=== PATIENT | male | born 1965 | race African-American/Black ===

== ENCOUNTER 2020-08-08 13:52 | Inpatient (IN) | payer OTHER ==
[2020-08-08 15:18] VITALS: BMI 47.2
[2020-08-08] MEDS ORDERED: MAGNESIUM HYDROX 2400MG/30ML ORAL SUSPENSION 30 ML CUP PO PRN (15:23)
[2020-08-08] MEDS ORDERED: MAG HYDROX/AL HYDROX/SIMETH 30 ML UNIT-DOSE CUP PO PRN (15:23)
[2020-08-08] MEDS ORDERED: IBUPROFEN 400 MG TABLET (FP) PO PRN (15:23)
[2020-08-08] MEDS ORDERED: ONDANSETRON *ODT* 4 MG TABLET SL PRN (15:23)
[2020-08-08] MEDS ORDERED: MAGNESIUM CITRATE 300 ML BOTTLE PO PRN (15:23)
[2020-08-08] MEDS ORDERED: MENTHOL/PHENOL 1 EACH UD MM PRN (15:23)
[2020-08-08] MEDS ORDERED: NICOTINE POLACRILEX 2 MG GUM BUC PRN (15:23)
[2020-08-08] MEDS ORDERED: ACETAMINOPHEN 325 MG TABLET (FP) PO PRN ×2 (15:23)
[2020-08-08] MEDS ORDERED: LORazepam 1 MG TABLET PO PRN (15:23)
[2020-08-08] MEDS ORDERED: BISMUTH SUBSALICYLATE 524 MG/30 ML UD PO PRN (15:23)
[2020-08-08] MEDS: LORazepam 2 MG TABLET PO SCH ×2 (17:07→22:09)
[2020-08-08] MEDS: hydrOXYzine PAMOATE 25 MG CAPSULE (FP) PO SCH ×2 (17:07→22:08)
[2020-08-08] MEDS: INSULIN SLIDING SCALE (NOVOLOG) 1 VIAL SQ SCH ×2 (17:43→21:37)
[2020-08-08] MEDS: THIAMINE HCL 100 MG TABLET (FP) PO SCH (22:08)
[2020-08-08] MEDS: GABAPENTIN 400 MG CAPSULE PO SCH (22:08)
[2020-08-08] MEDS: MELATONIN 5 MG TABLETS PO SCH (22:09)
[2020-08-09] MEDS: LORazepam 2 MG TABLET PO SCH ×4 (06:03→22:06)
[2020-08-09] MEDS: hydrOXYzine PAMOATE 25 MG CAPSULE (FP) PO SCH ×2 (06:04→10:20)
[2020-08-09] MEDS: INSULIN SLIDING SCALE (NOVOLOG) 1 VIAL SQ SCH ×4 (07:48→23:01)
[2020-08-09] MEDS: ASPIRIN 81 MG CHEWABLE TABLETS PO SCH (10:19)
[2020-08-09] MEDS: FUROSEMIDE 40 MG TABLET (FP) PO SCH (10:19)
[2020-08-09] MEDS: metoPROLOL SUCCINATE 25 MG TAB.SR.24H (FP) PO SCH (10:19)
[2020-08-09] MEDS: SPIRONOLACTONE 25 MG TABLET PO SCH (10:20)
[2020-08-09] MEDS: LOSARTAN POTASSIUM 25 MG TABLET PO SCH (10:20)
[2020-08-09] MEDS: PRENATAL VITAMINS W/ FOLIC ACID TABLET (FP) PO SCH (10:20)
[2020-08-09 13:21] LABS: POTASSIUM 3.8 mmol/L (3.5-5.1)
[2020-08-09 13:25] LABS: HEMATOCRIT 40.7 % (35.4-49); HEMOGLOBIN 13.7 GM/dL (11.7-16.9); MCH 30.5 pg (25.7-33.7); MCHC 33.8 g/dl (32.0-35.9); MEAN CELL VOLUME 90.4 fl (80-96); MEAN PLT VOLUME 10.9 fl (7.5-11.1); PLATELET COUNT 107 K/MM3 (134-434); RDW 16.4 % (11.9-15.9); WHITE BLOOD COUNT 5.3 K/mm3 (4.0-10.0)
[2020-08-09 13:27] LABS: ALBUMIN 3.7 g/dl (3.4-5.0); CALCIUM 9.6 mg/dL (8.5-10.1)
[2020-08-09 13:28] LABS: BLOOD UREA NITROGEN 9.9 mg/dL (7-18)
[2020-08-09 13:31] LABS: CREATININE 0.9 mg/dL (0.55-1.3)
[2020-08-09 13:34] LABS: TOT PROT 7.4 g/dl (6.4-8.2)
[2020-08-09] MEDS: GABAPENTIN 400 MG CAPSULE PO SCH (22:06)
[2020-08-09] MEDS: THIAMINE HCL 100 MG TABLET (FP) PO SCH (22:07)
[2020-08-09] MEDS: MELATONIN 5 MG TABLETS PO SCH (22:07)
[2020-08-09] MEDS: METHOCARBAMOL 500 MG TABLET PO PRN (22:07)
[2020-08-09] MEDS ORDERED: INSULIN (NOVOLOG) ASPART 100 UNITS/ML 10ML VIAL SQ ONE (22:48)
[2020-08-09] MEDS ORDERED: INSULIN (LEVEMIR) 100 UNITS/ML UNITS SQ ONE (22:53)
[2020-08-09] MEDS ORDERED: INSULIN SLIDING SCALE (NOVOLOG) 1 VIAL SQ ONE (22:53)
[2020-08-10] MEDS: hydrOXYzine PAMOATE 25 MG CAPSULE (FP) PO PRN (00:40)
[2020-08-10] MEDS: LORazepam 1 MG TABLET PO SCH ×4 (05:52→22:04)
[2020-08-10] MEDS: INSULIN SLIDING SCALE (NOVOLOG) 1 VIAL SQ SCH ×4 (07:08→22:09)
[2020-08-10] MEDS: ASPIRIN 81 MG CHEWABLE TABLETS PO SCH (10:20)
[2020-08-10] MEDS: PRENATAL VITAMINS W/ FOLIC ACID TABLET (FP) PO SCH (10:21)
[2020-08-10] MEDS: FUROSEMIDE 40 MG TABLET (FP) PO SCH (11:00)
[2020-08-10] MEDS: LOSARTAN POTASSIUM 25 MG TABLET PO SCH (11:00)
[2020-08-10] MEDS: SPIRONOLACTONE 25 MG TABLET PO SCH (11:00)
[2020-08-10] MEDS: metoPROLOL SUCCINATE 25 MG TAB.SR.24H (FP) PO SCH (11:00)
[2020-08-10] MEDS ORDERED: INSULIN SLIDING SCALE (NOVOLOG) 1 VIAL SQ ONE ×2 (11:27→22:43)
[2020-08-10] MEDS: GABAPENTIN 400 MG CAPSULE PO SCH (22:04)
[2020-08-10] MEDS: THIAMINE HCL 100 MG TABLET (FP) PO SCH (22:05)
[2020-08-10] MEDS: MELATONIN 5 MG TABLETS PO SCH (22:05)
[2020-08-10] MEDS: METHOCARBAMOL 500 MG TABLET PO PRN (22:07)
[2020-08-10] MEDS ORDERED: INSULIN (LEVEMIR) 100 UNITS/ML UNITS SQ ONE (22:44)
[2020-08-11] MEDS ORDERED: LORazepam 0.5 MG TABLET PO PRN
[2020-08-11] MEDS: LORazepam 0.5 MG TABLET PO SCH ×4 (06:02→22:02)
[2020-08-11] MEDS: INSULIN SLIDING SCALE (NOVOLOG) 1 VIAL SQ SCH ×4 (06:57→21:55)
[2020-08-11] MEDS: FUROSEMIDE 40 MG TABLET (FP) PO SCH (10:50)
[2020-08-11] MEDS: PRENATAL VITAMINS W/ FOLIC ACID TABLET (FP) PO SCH (10:50)
[2020-08-11] MEDS: ASPIRIN 81 MG CHEWABLE TABLETS PO SCH (10:50)
[2020-08-11] MEDS: LOSARTAN POTASSIUM 25 MG TABLET PO SCH (10:54)
[2020-08-11] MEDS: metoPROLOL SUCCINATE 25 MG TAB.SR.24H (FP) PO SCH (10:54)
[2020-08-11] MEDS: SPIRONOLACTONE 25 MG TABLET PO SCH (10:54)
[2020-08-11] MEDS ORDERED: INSULIN (NOVOLOG) ASPART 100 UNITS/ML 10ML VIAL SQ ONE (11:40)
[2020-08-11] MEDS: GABAPENTIN 400 MG CAPSULE PO SCH (21:52)
[2020-08-11] MEDS: THIAMINE HCL 100 MG TABLET (FP) PO SCH (21:52)
[2020-08-11] MEDS: MELATONIN 5 MG TABLETS PO SCH (21:52)
[2020-08-11] MEDS: hydrOXYzine PAMOATE 25 MG CAPSULE (FP) PO PRN (21:53)
[2020-08-12] MEDS: hydrOXYzine PAMOATE 25 MG CAPSULE (FP) PO PRN (02:10)
[2020-08-12] MEDS: METHOCARBAMOL 500 MG TABLET PO PRN (02:10)
[2020-08-12] MEDS ORDERED: LORazepam 0.5 MG TABLET PO ONE (05:00)
[2020-08-12] MEDS: INSULIN SLIDING SCALE (NOVOLOG) 1 VIAL SQ SCH (07:34)
[2020-08-12] MEDS ORDERED: INSULIN SLIDING SCALE (NOVOLOG) 1 VIAL SQ ONE (07:36)
[2020-08-12 09:19] VITALS: BP 115/75; PULSE 77; TEMP 96.8
[2020-08-12] MEDS: metoPROLOL SUCCINATE 25 MG TAB.SR.24H (FP) PO SCH (09:28)
[2020-08-12] MEDS: LOSARTAN POTASSIUM 25 MG TABLET PO SCH (09:29)
[2020-08-12] MEDS: SPIRONOLACTONE 25 MG TABLET PO SCH (09:29)
[2020-08-12] MEDS: PRENATAL VITAMINS W/ FOLIC ACID TABLET (FP) PO SCH (09:29)
[2020-08-12] MEDS: ASPIRIN 81 MG CHEWABLE TABLETS PO SCH (09:29)
[2020-08-12] MEDS: FUROSEMIDE 40 MG TABLET (FP) PO SCH (09:29)
== END 2020-08-12 09:40 | disposition home or self-care (01) | DRG 775 ==
LOC: YASAS 13:52 → Y3N 15:45
PROVIDERS: ADMIT Allergy & Immunology; ATTEND Allergy & Immunology
PROC: HZ2ZZZZ Detoxification Services for Substance Abuse Treatment (ICD-10-PCS; principal; 2020-08-08)
DX: F10.230 Alcohol dependence with withdrawal, uncomplicated (principal); F17.210 Nicotine dependence, cigarettes, uncomplicated; G47.33 Obstructive sleep apnea (adult) (pediatric); I25.10 Atherosclerotic heart disease of native coronary artery without angina pectoris; I11.0 Hypertensive heart disease with heart failure; I50.9 Heart failure, unspecified; I42.9 Cardiomyopathy, unspecified; K44.9 Diaphragmatic hernia without obstruction or gangrene; K74.60 Unspecified cirrhosis of liver; E11.65 Type 2 diabetes mellitus with hyperglycemia; Z79.4 Long term (current) use of insulin; E66.01 Morbid (severe) obesity due to excess calories; Z68.42 Body mass index [BMI] 45.0-49.9, adult; R74.8 Abnormal levels of other serum enzymes; Z88.8 Allergy status to other drugs, medicaments and biological substances
CPT/HCPCS: 36415; 80053; 82962; 85027; 86780; C9803; U0003